=== PATIENT | female | born 1990 | race Caucasian/White ===

== ENCOUNTER 2020-10-21 07:43 | Emergency (ER) | payer MEDICAID ==
[2020-10-21 07:51] VITALS: BP 137/94
--- NOTE | 2020-10-21 07:53 | ED Physician Documentation ---
PD HPI HEENT - Stated complaint Stated Complaint: RT EAR PX - Chief complaint Chief Complaint: Heent - History obtained from History obtained from: Patient - History of Present Illness Timing - onset: How many days ago (2-3) Timing - duration: Days (2-3) Timing - details: Gradual onset, Still present Location: Right ear, Nose (She states she has fairly consistent nasal congestion and some feeling of sinus pressure. She has had 3 days of progressive right ear pain consistent with prior ear infections she has had several times since the fall.) Improves: Medication (less pain with Ibuprofen) Worsens: No: Swalllowing Associated symptoms: Fever, Congestion. No: Unable to swallow, Facial swelling, Cough Similar symptoms before: Diagnosis (ear infections several times over past 1/2 year. Has even seen ENT and suggested to use Cetirizine daily. She does not take it regularly.) Recently seen: Not recently seen Review of Systems Constitutional: reports: Fever (last night), Chills Ears: reports: Loss of hearing (decreased right ear), Ear pain. denies: Tinnitus/ringing Nose: reports: Congestion (ongoing), Sinus pressure / pain Throat: denies: Sore throat Respiratory: denies: Cough GI: denies: Nausea, Vomiting, Diarrhea Skin: denies: Rash, Lesions Neurologic: denies: Headache PD PAST MEDICAL HISTORY - Past Medical History Cardiovascular: None Respiratory: None Neuro: None Endocrine/Autoimmune: None - Present Medications Home Medications: Ambulatory Orders Medication Instructions Recorded Confirmed Cetirizine [ZyrTEC] 10 mg PO DAILY 60 Days #60 tab 10/21/20 Fluticasone Propionate 2 spray NS DAILY 30 Days #1 bottle 10/21/20 cephALEXin [Keflex] 500 mg PO TID #20 cap 10/21/20 dexAMETHasone [Decadron] 4 mg PO DAILY #5 tab 10/21/20 - Allergies Allergies/Adverse Reactions: Allergies Allergy/AdvReac Type Severity Reaction Status Date / Time No Known Drug Allergies Allergy Verified 10/21/20 07:51 PD ED PE NORMAL - Vitals Vital signs reviewed: Yes - General General: Alert and oriented X 3, No acute distress, Well developed/nourished - HEENT HEENT: Pharynx benign. No: Ears normal (left TM with some fluid pressure behind it and old scar noted. Right TM also with fluid behind, but is also red and swollen. The canal appears okay. ) - Neck Neck: Supple, no meningeal sign, No adenopathy - Cardiac Cardiac: RRR, No murmur - Respiratory Respiratory: Clear bilaterally - Derm Derm: Normal color, Warm and dry, No rash - Neuro Neuro: Alert and oriented X 3, No motor deficit, Normal speech Results - Vitals Vitals: Vital Signs - 24 hr 10/21/20 07:50 Temperature 36.3 C L Heart Rate 91 Respiratory 18 Rate Blood Pressure 137/94 H O2 Saturation 99 Oxygen O2 Source Room air PD MEDICAL DECISION MAKING - ED course Complexity details: considered differential (This sounds likely some underlying allergy with subsequent infection developed. She will benefit from longer term allergy treatment with cetirizine and fluticasone to reduce recurrences.), d/w patient Departure - Departure Disposition: 01 Home, Self Care Clinical Impression: Otitis media Qualifiers: Otitis media type: suppurative Chronicity: acute Laterality: right Recurrence: recurrent Spontaneous tympanic membrane rupture: without spontaneous rupture Qualified Code(s): H66.004 - Acute suppurative otitis media without spontaneous rupture of ear drum, recurrent, right ear Condition: Stable Record reviewed to determine appropriate education?: Yes Instructions: ED Otitis Media Acute Adult Follow-Up: [facility] [Provider Group] Prescriptions: dexAMETHasone [Decadron] 4 mg PO DAILY #5 tab Fluticasone Propionate 2 spray NS DAILY 30 Days #1 bottle cephALEXin [Keflex] 500 mg PO TID #20 cap Cetirizine [ZyrTEC] 10 mg PO DAILY 60 Days #60 tab Comments: Cephalexin as directed for the acute ear infection. Also use Decadron steroid anti-inflammatory daily for the next 5 days to reduce inflammation through the sinus and eustachian tube. This will improve drainage. Also use cetirizine antihistamine daily to decrease the fluid accumulation in the middle ear. Tylenol or ibuprofen as needed for pains. This should improve over the next day or 2 and resolved by 3 to 5 days. For longer-term maintenance and prevention, use cetirizine daily for the next couple of months and also fluticasone nasal spray daily for the next couple of months as well. See if it reduces symptoms overall and prevents recurrent infections. Discharge Date/Time: 10/21/20 08:18
[2020-10-21] MEDS ORDERED: DEXAMETHASONE 10 MG/ML VIAL PO STA (08:05)
[2020-10-21] MEDS ORDERED: IBUPROFEN 600 MG TABLET PO STA (08:05)
[2020-10-21] MEDS ORDERED: CETIRIZINE 10 MG TABLET PO STA (08:05)
[2020-10-21] MEDS ORDERED: CHERRY SYRUP 10 ML UDC PO ONE (08:05)
[2020-10-21] MEDS ORDERED: cephALEXin 250 MG CAPSULE PO STA (08:05)
== END 2020-10-21 08:18 | disposition home or self-care (01) ==
LOC: ED 07:43
DX: H66.004 Acute suppurative otitis media without spontaneous rupture of ear drum, recurrent, right ear (principal)
CPT/HCPCS: 99283; 99284; A9270

== ENCOUNTER 2020-12-30 09:25 | Emergency (ER) | payer MEDICAID ==
[2020-12-30 09:36] VITALS: BP 143/99
--- OUTSIDE RECORDS SUMMARY | 2020-12-30 09:42 | EXTERNAL MEDICAL SUMMARY RPT | Continuity of Care Document ---
:1990 Demographics Phone Unavailable Preferred Language Unknown Marital Status Unknown Yazidi Affiliation Unknown Race Unknown Ethnic Group Unknown Author Organization [place] Address [address] [phone] Phone Social History date description facility [id number]
[2020-12-30 10:21] LABS: BILIRUBIN,URINE NEGATIVE (NEGATIVE); GLUCOSE, URINE (UA) 100 mg/dL (NEGATIVE); KETONES,URINE (UA) NEGATIVE (NEGATIVE); LEUKOCYTE ESTERASE, URINE SMALL (NEGATIVE); NITRITE,URINE POSITIVE (NEGATIVE); OCCULT BLOOD,URINE SMALL (NEGATIVE); PROTEIN,URINE >=300 mg/dL (NEGATIVE); UROBILINOGEN,URINE 2 E.U./dL (NORMAL)
[2020-12-30 10:24] LABS: CLARITY,URINE CLOUDY (CLEAR); HCG UR QUAL NEGATIVE
[2020-12-30 10:32] LABS: BACTERIA,URINE Moderate /HPF (None Seen); SQUAMOUS EPITHELIAL CELL,UR MANY Squamous (<= Few); WBC CLUMPS,URINE PRESENT
[2020-12-30] MEDS ORDERED: NITROFURANTOIN MACRO 100 MG CAPSULE PO STA (10:51)
--- NOTE | 2020-12-30 10:53 | ED Physician Documentation ---
PD HPI FEMALE - Stated complaint Stated Complaint: FEMALE - Chief complaint Chief Complaint: UTI - History obtained from History obtained from: Patient - History of Present Illness Timing - onset: How many days ago (3) Timing - duration: Days (3) Timing - details: Gradual onset Pain level max: 2 Pain level max: 2 Associated symptoms: Dysuria, Urinary frequency. No: Fever, Chest/shoulder pain, Abdominal pain, Back pain, Pelvic pain, Vaginal pain, Vaginal bleeding, Vaginal discharge, Hematuria Contributing factors: No: Similar symptoms before: Diagnosis (UTI) Review of Systems Constitutional: denies: Fever, Chills GI: denies: Vomiting, Diarrhea : denies: Now EGA Skin: denies: Rash PD PAST MEDICAL HISTORY - Past Medical History Cardiovascular: None Respiratory: None Neuro: None Endocrine/Autoimmune: None - Present Medications Home Medications: Ambulatory Orders Medication Instructions Recorded Confirmed Cetirizine [ZyrTEC] 10 mg PO DAILY 60 Days #60 tab 10/21/20 12/30/20 Fluticasone Propionate 2 spray NS DAILY 30 Days #1 bottle 10/21/20 12/30/20 Nitrofurantoin Monohyd/M-Cryst 100 mg PO BID #10 cap 12/30/20 [Macrobid 100 mg Capsule] - Allergies Allergies/Adverse Reactions: Allergies Allergy/AdvReac Type Severity Reaction Status Date / Time No Known Drug Allergies Allergy Verified 12/30/20 09:36 - Social History Does the pt smoke?: No Smoking Status: Never smoker PD ED PE NORMAL - Vitals Vital signs reviewed: Yes - General General: Alert and oriented X 3, No acute distress - HEENT HEENT: Moist mucous membranes - Neck Neck: Supple, no meningeal sign - Cardiac Cardiac: RRR, Strong equal pulses - Respiratory Respiratory: No respiratory distress, Clear bilaterally - Abdomen Abdomen: Soft, Non tender, Non distended - Back Back: No CVA TTP, No spinal TTP - Derm Derm: Warm and dry - Neuro Neuro: Alert and oriented X 3 - Psych Psych: Normal mood, Normal affect Results - Vitals Vitals: Vital Signs - 24 hr 12/30/20 09:34 Temperature 36.4 C L Heart Rate 87 Respiratory 16 Rate Blood Pressure 143/99 H O2 Saturation 96 Oxygen O2 Source Room air - Labs Labs: Laboratory Tests 12/30/20 10:10 Urine Color ORANGE Urine Clarity CLOUDY Urine pH 7.0 Ur Specific [place] 1.020 Urine Protein >=300 H Urine Glucose (UA) 100 H Urine Ketones NEGATIVE Urine Occult Blood SMALL H Urine Nitrite POSITIVE H Urine Bilirubin NEGATIVE Urine Urobilinogen 2 H Ur Leukocyte Esterase SMALL H Urine RBC 6-10 H Urine WBC 11-25 H Urine WBC Clumps PRESENT Ur Squamous Epith Cells MANY Squamous H Urine Bacteria Moderate H Ur Microscopic Review INDICATED Urine Culture Comments NOT INDICATED Urine HCG, Qual NEGATIVE PD MEDICAL DECISION MAKING - ED course Complexity details: reviewed results, considered differential, d/w patient ED course: 30-year-old female with a UTI. Will place on antibiotics. No evidence of pyelonephritis. Not . No evidence of sepsis. Patient counseled regarding signs and symptoms for which I believe and urgent re-evaluation would be necessary. Patient with good understanding of and agreement to plan and is comfortable going home at this time This document was made in part using voice recognition software. While efforts are made to proofread this document, sound alike and grammatical errors may occur. Departure - Departure Disposition: 01 Home, Self Care Clinical Impression: Urinary tract infection Qualifiers: Urinary tract infection type: acute cystitis Hematuria presence: without hematuria Qualified Code(s): N30.00 - Acute cystitis without hematuria Condition: Good Instructions: ED UTI Cystitis Female Follow-Up: your,doctor as needed [Other] Prescriptions: Nitrofurantoin Monohyd/M-Cryst [Macrobid 100 mg Capsule] 100 mg PO BID #10 cap Comments: Take all antibiotics until gone. Return if you worsen. Your prescription was sent to [facility] in [place] Discharge Date/Time: 12/30/20 11:01
== END 2020-12-30 11:01 | disposition home or self-care (01) ==
LOC: ED 09:25
DX: N30.00 Acute cystitis without hematuria (principal)
CPT/HCPCS: 81001; 81025; 99283; 99284; A9270; 81003; 87086

== ENCOUNTER 2021-03-29 16:07 | Emergency (ER) | payer MEDICAID ==
[2021-03-29 16:13] VITALS: BP 139/91
--- NOTE | 2021-03-29 16:24 | ED Physician Documentation ---
History of Present Illness - Stated complaint Stated Complaint: RT SIDE FACE/TOOTH PX - Chief complaint Chief Complaint: Heent - Additonal information Additional information: 30-year-old female presents emergency department for evaluation of 5 days right lower posterior mouth wisdom tooth pain. Patient reports that she has a wisdom tooth that she has been advised to have removed in the past but was unable to afford the cost. It did get infected about a year ago and required antibiotics. This time pain it feels similar. It radiates up towards her ear and eye. No trismus or fevers. Normal phonation and swallow. This morning the pain was worse and she felt swelling in the back of her mouth. Review of Systems Constitutional: reports: Reviewed and negative Ears: reports: Reviewed and negative Nose: reports: Reviewed and negative Throat: reports: Dental pain / toothache Cardiac: reports: Reviewed and negative Respiratory: reports: Reviewed and negative GI: reports: Reviewed and negative : reports: Reviewed and negative PD PAST MEDICAL HISTORY - Past Medical History Cardiovascular: None Respiratory: None Neuro: None Endocrine/Autoimmune: None - Present Medications Home Medications: Ambulatory Orders Medication Instructions Recorded Confirmed Cetirizine [ZyrTEC] 10 mg PO DAILY 60 Days #60 tab 10/21/20 03/29/21 Amox/Clav 875/125 [Augmentin] 1 each PO Q12H #14 tablet 03/29/21 Chlorhexidine Gluconate [Scrub 10 ml TP BID #1 bottle 03/29/21 Care Exidine] Famotidine 10 mg PO DAILY 03/29/21 03/29/21 - Allergies Allergies/Adverse Reactions: Allergies Allergy/AdvReac Type Severity Reaction Status Date / Time No Known Drug Allergies Allergy Verified 03/29/21 16:10 - Social History Does the pt smoke?: No Smoking Status: Never smoker PD ED PE EXPANDED - General General: Alert, In Pain - HEENT HEENT: Pharynx normal, Dental decay (Right lower wisdom tooth appears to be impacted near the molar. There is a flap of gum tissue overriding the tooth and when viewed underneath we do see decay.) - Cardiac Cardiac: Regular Rate, Radial strong equal - Respiratory Respiratory: Clear to ausultation hina Results - Vitals Vitals: Vital Signs - 24 hr 03/29/21 16:11 Temperature 36.8 C Heart Rate 70 Respiratory 18 Rate Blood Pressure 139/91 H O2 Saturation 100 Oxygen O2 Source Room air PD MEDICAL DECISION MAKING - ED course Complexity details: d/w patient ED course: 30-year-old female presents emergency department with 5 days of right lower wisdom tooth pain. On exam she has large amount of tissue overriding the tooth which is inflamed and erythematous. When viewed under the tissue the molar saira ears decayed. She is likely is developing abscess or infection. We will start her on Augmentin recommend chlorhexidine mouth rinse. She is to follow-up with her dentist for referral to an oral surgeon. Emergent and worrisome return precautions were discussed. Departure - Departure Disposition: Home, Self Care Clinical Impression: Dentalgia Condition: Stable Record reviewed to determine appropriate education?: Yes Prescriptions: Amox/Clav 875/125 [Augmentin] 1 each PO Q12H #14 tablet Chlorhexidine Gluconate [Scrub Care Exidine] 10 ml TP BID #1 bottle Comments: Tess your right lower wisdom tooth is impacted and appears to be decaying. You will need to have your wisdom tooth removed in the future. Please fill the prescription for the antibiotics and take as directed. I have also prescribed a mouth rinse for you to use twice a day. If you find that the mouth wrist is cost prohibitive then I do recommend that you gargle with warm salt water 2-3 times a day. You can take Tylenol or ibuprofen [id number] for discomfort. You may also find some pain relief by the use of [id number] agents like Anbesol or Orajel. If you find that your symptoms are worsening, you have facial swelling, fevers, cannot open your mouth normally or swallow please return to the ER for second evaluation.
== END 2021-03-29 16:29 | disposition home or self-care (01) ==
LOC: ED 16:07
DX: K08.89 Other specified disorders of teeth and supporting structures (principal); K01.1 Impacted teeth; K02.9 Dental caries, unspecified
CPT/HCPCS: 99282; 99283

== ENCOUNTER 2021-10-12 17:42 | Emergency (ER) | payer MEDICAID ==
[2021-10-12 18:08] LABS: BILIRUBIN,URINE NEGATIVE (NEGATIVE); GLUCOSE, URINE (UA) NEGATIVE (NEGATIVE); KETONES,URINE (UA) NEGATIVE (NEGATIVE); LEUKOCYTE ESTERASE, URINE NEGATIVE (NEGATIVE); NITRITE,URINE NEGATIVE (NEGATIVE); OCCULT BLOOD,URINE NEGATIVE (NEGATIVE); PROTEIN,URINE NEGATIVE (NEGATIVE); UROBILINOGEN,URINE 1 (NORMAL) E.U./dL (NORMAL)
[2021-10-12 18:12] LABS: CLARITY,URINE CLEAR (CLEAR); HCG UR QUAL NEGATIVE
[2021-10-12] MEDS ORDERED: KETOROLAC 60 MG/2 ML VIAL IM STA (18:32)
--- NOTE | 2021-10-12 18:32 | ED Physician Documentation ---
History of Present Illness - Stated complaint Stated Complaint: FEMALE - Chief complaint Chief Complaint: Back Pain - Additonal information Additional information: 31-year-old female presents emergency department for evaluation of acute onset low back pain and urinary frequency. States fever up to 100.8. Symptoms began this morning. States it feels similar to when she has had urinary tract infections though she has no dysuria. No vomiting. She denies any abdominal pain. She is also endorsing some generalized joint pains headache and neck pain. Not yet vaccinated for COVID-19. Review of Systems Constitutional: reports: Fever. denies: Chills Eyes: reports: Reviewed and negative Nose: reports: Reviewed and negative Throat: reports: Reviewed and negative Cardiac: reports: Reviewed and negative Respiratory: reports: Reviewed and negative GI: reports: Reviewed and negative : reports: Frequency. 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 - Present Medications Home Medications: Ambulatory Orders Medication Instructions Recorded Confirmed Cetirizine [ZyrTEC] 10 mg PO DAILY 60 Days #60 tab 10/21/20 03/29/21 Amox/Clav 875/125 [Augmentin] 1 each PO Q12H #14 tablet 03/29/21 Acetaminophen [Tylenol] 650 mg PO Q6H PRN 10/12/21 10/12/21 Etonogestrel [Nexplanon] 10/12/21 - Allergies Allergies/Adverse Reactions: Allergies Allergy/AdvReac Type Severity Reaction Status Date / Time No Known Drug Allergies Allergy Verified 03/29/21 16:10 - Social History Does the pt smoke?: No Smoking Status: Never smoker Does the pt drink ETOH?: No Does the pt have substance abuse?: No - Immunizations Immunizations are current?: Yes PD ED PE NORMAL - General General: Alert and oriented X 3, No acute distress, Well developed/nourished - HEENT HEENT: Atraumatic, Ears normal, Moist mucous membranes - Neck Neck: Supple, no meningeal sign, No adenopathy - Cardiac Cardiac: RRR, No murmur - Respiratory Respiratory: No respiratory distress, Clear bilaterally - Abdomen Abdomen: Normal bowel sounds, Soft, Non tender - Back Back: No CVA TTP, No spinal TTP, Other (Mild tenderness elicited with palpation of the lower lumbar muscles. Normal gait, normal forward flexion. Motor strength 5 of 5 bilateral lower extremities.) - Derm Derm: Normal color, Warm and dry, No rash - Extremities Extremities: No deformity, No tenderness to palpate, Normal ROM s pain - Neuro Motor: Obeys Commands Verbal: Oriented Results - Vitals Vitals: Vital Signs - 24 hr 10/12/21 17:53 Temperature 36.9 C Heart Rate 111 H Respiratory 20 Rate Blood Pressure 154/104 H O2 Saturation 100 Oxygen O2 Source Room air - Labs Labs: Laboratory Tests 10/12/21 10/12/21 10/12/21 18:00 18:39 18:39 WBC 6.7 RBC 4.23 Hgb 14.4 Hct 39.2 MCV 92.7 MCH 34.0 H MCHC 36.7 H RDW 11.1 L Plt Count 241 MPV 10.7 Neut # (Auto) 5.4 Lymph # (Auto) 0.5 L [place] # (Auto) 0.6 Eos # (Auto) 0.2 Baso # (Auto) 0.0 Absolute Nucleated RBC 0.00 Nucleated RBC % 0.0 Sodium 137 Potassium 3.4 L Chloride 100 L Carbon Dioxide 27 Anion Gap 10.0 BUN 11 Creatinine 0.6 Estimated GFR (MDRD) 117 Glucose 106 H Calcium 9.1 Total Bilirubin 0.7 AST 20 ALT 26 Alkaline Phosphatase 60 Total Protein 8.0 Albumin 4.4 Globulin 3.6 Albumin/Globulin Ratio 1.2 Lipase 29 Urine Color YELLOW Urine Clarity CLEAR Urine pH 6.0 Ur Specific [place] 1.015 Urine Protein NEGATIVE Urine Glucose (UA) NEGATIVE Urine Ketones NEGATIVE Urine Occult Blood NEGATIVE Urine Nitrite NEGATIVE Urine Bilirubin NEGATIVE Urine Urobilinogen 1 (NORMAL) Ur Leukocyte Esterase NEGATIVE Ur Microscopic Review NOT INDICATED Urine Culture Comments NOT INDICATED Urine HCG, Qual NEGATIVE PD MEDICAL DECISION MAKING - ED course Complexity details: reviewed results, re-evaluated patient, considered differential, d/w patient ED course: 31-year-old female presents emergency department for evaluation of acute onset low back pain and urinary Frequency but no dysuria. She states she had a fever of 100.8 this afternoon. No cough or congestion. Clinically she appears rather well. I was unable to elicit any abdominal tenderness. Cardiopulmonary auscultation was unremarkable. Initial screening urine was without focal findings of infection. The patient feels that there is something dramatically wrong with her this we proceeded with screening labs that were essentially unremarkable. Chest x-ray showed no acute focal opacity. I reevaluated the patient and she continued to be free of any abdominal pain. She was given Toradol for her low back pain which moderately improved the symptoms. At this time a COVID-19 test is pending. Patient is advised close follow-up with a primary care provider recommend Tylenol or ibuprofen for low back pain. Will return to the ER for worsening symptoms. Departure - Departure Disposition: Home, Self Care Clinical Impression: Urinary frequency Low back pain Qualifiers: Chronicity: acute Back pain laterality: bilateral Sciatica presence: without sciatica Qualified Code(s): M54.50 - Low back pain, unspecified Fever Qualifiers: Fever type: unspecified Qualified Code(s): R50.9 - Fever, unspecified Condition: Stable Record reviewed to determine appropriate education?: Yes Comments: Tess you are seen here in the emergency department for sudden onset low back pain as well as urinary frequency. Your urine showed no signs of infection. Your screening labs including a blood count and chemistry panel were unremarkable. Chest x-ray does not show any obvious findings. We do have a COVID-19 test pending on you. We will notify you only if it is positive. In general I recommend that you take Tylenol or ibuprofen for discomfort. If you find that your symptoms are worsening, you have fevers higher than 103, uncontrolled vomiting or abdominal pain then please return to the ER for a second evaluation.
[2021-10-12 18:43] LABS: BASOPHILS % (AUTO) 0.4 %; EOSINOPHILS # (AUTO) 0.2 10^3/uL (0.0-0.7); EOSINOPHILS % (AUTO) 2.2 %; HCT - HEMATOCRIT 39.2 % (37.0-47.0); HGB - HEMOGLOBIN 14.4 g/dL (12.0-16.0); LYMPHOCYTES # (AUTO) 0.5 10^3/uL (1.5-3.5); LYMPHOCYTES % (AUTO) 6.7 %; MEAN CORPUSCULAR HGB CONC 36.7 g/dL (32.0-36.0); MEAN CORPUSCULAR VOLUME 92.7 fL (81.0-99.0); MEAN PLATELET VOLUME 10.7 fL (7.9-10.8); MONOCYTES # (AUTO) 0.6 10^3/uL (0.0-1.0); MONOCYTES % (AUTO) 9.6 %; NEUTROPHILS # (AUTO) 5.4 10^3/uL (1.5-6.6); NEUTROPHILS % (AUTO) 80.8 %; PLT - PLATELET COUNT 241 10^3/uL (130-450); RED BLOOD COUNT 4.23 10^6/uL (4.20-5.40); RED CELL DISTRIBUTION WIDTH 11.1 % (12.0-15.0); WHITE BLOOD COUNT 6.7 x10^3/uL (4.8-10.8)
[2021-10-12 18:58] LABS: ALBUMIN 4.4 g/dL (3.2-5.5); ALBUMIN/GLOBULIN RATIO 1.2 (1.0-2.2); BILIRUBIN,TOTAL 0.7 mg/dL (0.2-1.0); CALCIUM 9.1 mg/dL (8.5-10.3); CREATININE 0.6 mg/dL (0.4-1.0); POTASSIUM 3.4 mmol/L (3.5-5.0)
--- NOTE | 2021-10-12 19:26 | XRAY Report ---
PROCEDURE: Chest 1 View X-Ray INDICATIONS: chest pain TECHNIQUE: One view of the chest was acquired. COMPARISON: None. FINDINGS: Surgical changes and devices: None. Lungs and pleura: No pleural effusions or pneumothorax. Lungs are clear. Mediastinum: Mediastinal contours appear normal. Heart size is normal. Bones and chest wall: No suspicious bony lesions. Overlying soft tissues appear unremarkable. IMPRESSION: No acute cardiopulmonary abnormality.. Reviewed by: Zak Tyler MD on 10/12/2021 7:[address] [facility] Approved by: Zak Tyler MD on 10/12/2021 7:[address] [facility] Station ID: [id number]
[2021-10-12 19:38] VITALS: BP 136/82
== END 2021-10-12 19:37 | disposition home or self-care (01) ==
LOC: ED 17:42
DX: U07.1 COVID-19 (principal)
CPT/HCPCS: 36415; 80053; 81001; 81003; 81025; 83690; 85025; 87086; 96372; 99282; 99284

== ENCOUNTER 2022-03-10 06:03 | Emergency (ER) | payer MEDICAID ==
--- OUTSIDE RECORDS SUMMARY | 2022-03-10 06:23 | EXTERNAL MEDICAL SUMMARY RPT | Continuity of Care Document ---
:1990 Author Organization [place] Address [address] [place] [address] Phone Allergies and Intolerances date description facility type (no date) No Known Drug Allergies [facility] ([facility]kn own) Encounters No information. Functional Status No information. Immunizations No information. Medications No information. Problems No information. Procedures date description facility +0000 General Physician [facility] Results/Labs No information. Social History date description facility (no date) Never smoked tobacco (finding) [facility] Vital Signs date measurement value units +0000 BMI BMI 24.4 kg/m2 +0000 heart_rate heart_rate 74 /min +0000 height_metric height_metric 160.02 cm +0000 height_standard height_standard 63 in +0000 respiration_rate respiration_rate 16 /min +0000 temperature_metric temperature_metric 36.22 C +0000 temperature_standard temperature_standard 9 7.2 F +0000 weight_metric weight_metric 62.59 kg +0000 weight_standard weight_standard 137.99 lb
--- NOTE | 2022-03-10 06:24 | ED Physician Documentation ---
PD HPI HEENT - Stated complaint Stated Complaint: TOOTH PX - Chief complaint Chief Complaint: Heent - History obtained from History obtained from: Patient - History of Present Illness Timing - onset: How many days ago (4) Timing - details: Gradual onset Pain level now: 4 Location: Tooth Improves: Nothing Worsens: Other (no exacerbating factors) Associated symptoms: No: Fever Recently seen: Not recently seen - Additional information Additional information: c/o left lower tooth pain x 4 days. has had similar pain in the past although previous episodes were right-sided. 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 - Present Medications Home Medications: Ambulatory Orders Medication Instructions Recorded Confirmed Cetirizine [ZyrTEC] 10 mg PO DAILY 60 Days #60 tab 10/21/20 03/29/21 Amox/Clav 875/125 [Augmentin] 1 each PO Q12H #14 tablet 03/29/21 Acetaminophen [Tylenol] 650 mg PO Q6H PRN 10/12/21 10/12/21 Etonogestrel [Nexplanon] 10/12/21 Amox/Clav 875/125 [Augmentin 1 tablet PO Q12H 7 Days #14 tablet 03/10/22 875/125 Tab] - Allergies Allergies/Adverse Reactions: Allergies Allergy/AdvReac Type Severity Reaction Status Date / Time No Known Drug Allergies Allergy Verified 03/10/22 06:07 - Social History Does the pt smoke?: No Smoking Status: Never smoker Does the pt drink ETOH?: No Does the pt have substance abuse?: No - Immunizations Immunizations are current?: Yes PD ED PE NORMAL - Vitals Vital signs reviewed: Yes - General General: Alert and oriented X 3, No acute distress, Well developed/nourished - HEENT HEENT: Moist mucous membranes - Neck Neck: Supple, no meningeal sign PD ED PE EXPANDED - HEENT HEENT: Dental TTP (left mandibular third molar is TTP; there is no erythema nor swelling of gingiva. the posterior half of the crown is covered by gingiva (as is the right mandibular 3rd molar)) Results - Vitals Vitals: Oxygen O2 Source Room air PD MEDICAL DECISION MAKING - ED course Complexity details: reviewed old records, considered differential, d/w patient Departure - Departure Disposition: 01 Home, Self Care Clinical Impression: Toothache Condition: Good Instructions: ED Tooth Pain Prescriptions: Amox/Clav 875/125 [Augmentin 875/125 Tab] 1 tablet PO Q12H 7 Days #14 tablet Comments: A prescription for an antibiotic (amoxicillin/clavulanic acid, Augmentin) has been electronically submitted to [facility] pharmacy in [place]. Discharge Date/Time: 03/10/22 06:44
[2022-03-10] MEDS ORDERED: AMOX/CLAV 875 MG/125 MG TABLET PO STA (06:38)
[2022-03-10 06:45] VITALS: BP 140/89
== END 2022-03-10 06:44 | disposition home or self-care (01) ==
LOC: ED 06:03
DX: K08.89 Other specified disorders of teeth and supporting structures (principal)
CPT/HCPCS: 99282; 99283; A9270